=== PATIENT | female | born 1980 | race Caucasian/White ===

== ENCOUNTER 2021-05-29 02:21 | Inpatient (IN) | payer SELFPAY ==
[~2021-05-29] VITALS: Ht 175.3 cm; Wt 75.0 kg
[2021-05-29] MEDS ORDERED: OXYTOCIN 30 UNIT/500 ML PREMIX 500 ML IV PRN ×3 (02:45→04:45)
[2021-05-29] MEDS ORDERED: BUTORPHANOL 2 MG/ML VIAL. IVP PRN ×2 (02:45)
[2021-05-29] MEDS ORDERED: IV RINGERS,LACTATED 1000ML 1,000 ML IV SCH (02:45)
[2021-05-29] MEDS ORDERED: TERBUTALINE 1 MG/ML VIAL. SQ PRN (02:45)
[2021-05-29] MEDS ORDERED: 0.9 % SODIUM CHLORIDE 10 ML DISP.SYRIN. IV PRN ×2 (02:45→04:45)
[2021-05-29] MEDS ORDERED: LIDOCAINE 1% PF 30 ML VIAL. INJ PRN (02:45)
[2021-05-29] MEDS ORDERED: ACETAMINOPHEN 325 MG TABLET. PO PRN ×2 (02:45→04:45)
[2021-05-29 02:58] LABS: BILIRUBIN,URINE NEGATIVE (NEG); CLARITY,URINE CLEAR; COLOR,URINE AMBER; NITRITE,URINE NEGATIVE (NEG); PROTEIN,URINE 100 mg/dL (NEG-TRACE)
[2021-05-29 03:04] LABS: BARBITURATES NEG (NEG); BENZODIAZEPINES NEG (NEG); CANNABINOIDS NEG (NEG); COCAINE NEG (NEG); METHADONE NEG (NEG); OPIATES NEG (NEG); PHENCYCLIDINE NEG (NEG)
[2021-05-29 03:06] LABS: AMPHETAMINE/METHAMPHETAMINE POS (NEG)
[2021-05-29 03:13] LABS: BASO % 0 % (0-3); EOS % 0 % (0-3); HEMATOCRIT 31.4 % (36.0-47.0); HEMOGLOBIN 10.5 g/dL (12.0-15.5); LYMPH # 1.4 x10^3/uL (1.0-4.8); LYMPH % 11 % (24-48); MEAN CORPUSCULAR HEMOGLOBIN 28 pg (25-35); MEAN CORPUSCULAR HGB CONC 34 g/dL (31-37); MEAN CORPUSCULAR VOLUME 82 fL (79-100); MONO % 8 % (0-9); NEUT # 10.6 x10^3/uL (1.8-7.7); NEUT % 81 % (31-73); PLATELET COUNT 218 x10^3/uL (140-400); RED BLOOD COUNT 3.84 x10^6/uL (3.50-5.40); WHITE BLOOD COUNT 13.1 x10^3/uL (4.0-11.0)
[2021-05-29 03:13] LABS: BACTERIA,URINE MANY /HPF (0-FEW)
[2021-05-29 03:14] VITALS: BP 134/74
--- NOTE | 2021-05-29 04:33 | PDOC1 ---
[facility] H&P Date of Admission: Date of Admission: May 29, 2021 at 02:21 History of Present Illness: EDC: unknown LMP: Aug 2020 40y @ ~35wks by 35wk u/s presents with ctxs. On presentation the pt was found to be 8 cm dilated. The pt has not established care during this . She went to [facility] for back last wk. During her 2 day stay she had an u/s performed. She states that they told her that the pregn argenis was 35wks. That is her first and only u/s. The pt does not have a specific reason why she never established care. PMH: Depression/Anxiety, Schizophrenia PSH: Denies Meds: None All: Abilify, Lamotrigine OBHx: 4 x TSVD SH: no tob, no EtOH FH: noncontributory Medications: Meds: Current Medications Medications (Trade) Dose Ordered Sig/Flip Route PRN Reason Start Time Stop Time Status Last Admin Dose Admin Ringer's Solution 1,000 ml @ 125 mls/hr Q8H IV 05/29/21 02:45 05/29/21 04:32 DC 05/29/21 02:45 Allergies: Coded Allergies: aripiprazole (Unverified Allergy, Unknown, 05/29/21) lamotrigine (Unverified Allergy, Unknown, 05/29/21) Physical Exam: Vital Signs: Vital Signs Date Time Temp Pulse Resp B/P (MAP) Pulse Ox O2 Delivery O2 Flow Rate FiO2 05/29/21 03:14 98.2 84 20 134/74 (94) Room Air 98.2 PE: GENERAL: No apparent distress. Alert and oriented. HEENT: Head normocephalic, atraumatic. NECK: Supple LUNGS: Clear to auscultation. HEART: RRR, S1, S2 present, pulses intact ABDOMEN: Soft, positive bowel sounds. EXTREMITIES: No cyanosis or edema. NEUROLOGIC: Normal speech, normal tone PSYCHIATRIC: Normal affect, normal mood. SKIN: No ulceration. FHT: 120s +acels/no decels/mLTV [place]: 1-4 min SVE: 8/90/0 Labs: Laboratory Tests Test 05/29/21 02:31 05/29/21 02:45 9/3/21 03:16 Urine Collection Type Unknown Urine Color Rachael Urine Clarity Clear Urine pH 6.0 (<5.0-8.0) Urine Specific [place] >=1.030 (1.000-1.030) Urine Protein 100 mg/dL (NEG-TRACE) Urine Glucose (UA) Negative mg/dL (NEG) Urine Ketones (Stick) 15 mg/dL (NEG) Urine Blood Trace (NEG) Urine Nitrite Negative (NEG) Urine Bilirubin Negative (NEG) Urine Urobilinogen Dipstick 1.0 mg/dL (0.2 mg/dL) Urine Leukocyte Esterase Small (NEG) Urine RBC 1-2 /HPF (0-2) Urine WBC 11-20 /HPF (0-4) Urine Squamous Epithelial Cells Mod /LPF Urine Bacteria Many /HPF (0-FEW) Urine Mucus Mod /LPF Urine Opiates Screen Neg (NEG) Urine Methadone Screen Neg (NEG) Urine Barbiturates Neg (NEG) Urine Phencyclidine Screen Neg (NEG) Urine Amphetamine/Methamphetamine Pos (NEG) Urine Benzodiazepines Screen Neg (NEG) Urine Cocaine Screen Neg (NEG) Urine Cannabinoids Screen Neg (NEG) Urine Ethyl Alcohol Neg (NEG) White Blood Count 13.1 x10^3/uL (4.0-11.0) H Red Blood Count 3.84 x10^6/uL (3.50-5.40) Hemoglobin 10.5 g/dL (12.0-15.5) L Hematocrit 31.4 % (36.0-47.0) L Mean Corpuscular Volume 82 fL (79-100) Mean Corpuscular Hemoglobin 28 pg (25-35) Mean Corpuscular Hemoglobin Concent 34 g/dL (31-37) Red Cell Distribution Width 17.0 % (11.5-14.5) H Platelet Count 218 x10^3/uL (140-400) Neutrophils (%) (Auto) 81 % (31-73) H Lymphocytes (%) (Auto) 11 % (24-48) L Monocytes (%) (Auto) 8 % (0-9) Eosinophils (%) (Auto) 0 % (0-3) Basophils (%) (Auto) 0 % (0-3) Neutrophils # (Auto) 10.6 x10^3/uL (1.8-7.7) H Lymphocytes # (Auto) 1.4 x10^3/uL (1.0-4.8) Monocytes # (Auto) 1.0 x10^3/uL (0.0-1.1) Eosinophils # (Auto) 0.0 x10^3/uL (0.0-0.7) Basophils # (Auto) 0.0 x10^3/uL (0.0-0.2) SARS-CoV-2 Antigen (Rapid) Negative (NEGATIVE) Laboratory Tests 05/29/21 02:45 Laboratory Tests 05/29/21 02:45 Assessment & Plan: A/P 40y @ ~35wks by 35wk 1.) Active labor 2.) No care 3.) AMA 4.) Anemia 5.) UDS pos - Meth 6.) Fetus cat I FHT, mec 7.) GBS unk 8.) Plans to give the baby to adoption 9.) H/o Depression/Anxiety has not required meds for the last 10yrs ALLISON LARIOS MD May 29, 2021 04:33
--- NOTE | 2021-05-29 04:34 | PDOC4 ---
VAGINAL DELIVERY DATE DATE: 05/29/21 TIME: 04:33 TIME Patient delivered a viable female over intact perineum at 0420. Wt 6 lb 8 oz. Apgars 9/9. Placenta delivered spontaneously, intact with 3VC. No lacerations noted. Good hemostasis noted. 20 U of Pit given with IVF. EBL 100 cc. WEIGHT Weight [ ] ALLISON LARIOS MD May 29, 2021 04:34
[2021-05-29] MEDS ORDERED: diphenhydrAMINE HCL 25 MG CAPSULE PO PRN (04:45)
[2021-05-29] MEDS ORDERED: SIMETHICONE 80 MG TAB.CHEW PO PRN (04:45)
[2021-05-29] MEDS ORDERED: MMR per PROTOCOL. MC PRN (04:45)
[2021-05-29] MEDS ORDERED: BENZOCAINE 20% TOPICAL AEROSOL SPRAY 57GM CAN. TP PRN (04:45)
[2021-05-29] MEDS ORDERED: TDaP (Adacel) per PROTOCOL. MC PRN (04:45)
[2021-05-29] MEDS ORDERED: oxyCODONE/APAP 5/325 1 TAB TABLET PO PRN (04:45)
[2021-05-29] MEDS ORDERED: ZOLPIDEM 5 MG TABLET. PO PRN (04:45)
[2021-05-29] MEDS ORDERED: HYDROCORTISONE 1% TOPICAL OINTMENT 30GM TUBE. TP PRN (04:45)
[2021-05-29] MEDS ORDERED: MAGNESIUM HYDROXIDE 2,400 MG/30 ML ORAL.SUSP. PO PRN (04:45)
[2021-05-29] MEDS ORDERED: PHENYLEPH/MINERAL OIL/PETROLAT RECTAL OINTMENT TUBE. RC PRN (04:45)
[2021-05-29] MEDS ORDERED: MAG HYDROX/ALUMINUM HYD/SIMETH 30 ML ORAL.SUSP PO PRN (04:45)
[2021-05-29] MEDS: IBUPROFEN 400 MG TABLET. PO PRN ×2 (05:07→16:13)
[2021-05-29] MEDS: DOCUSATE SODIUM 100 MG CAPSULE. PO PRN ×2 (09:36→16:12)
[2021-05-29] MEDS: PRENATAL MULTIVITAMIN TABLET. PO SCH (09:36)
[2021-05-29 11:20] VITALS: BP 115/58
--- NOTE | 2021-05-29 11:28 | NUR ---
SS following up with referral regarding Methamphetamine positive and mother requesting baby be placed for adoption. SS discussed with RN and reviewed chart. Mother and UDS positive for Methamphetamine. DCF hotline report made for substance use and mother wanting to place for adoption. Intake#[id number]. [facility] notified as well and are coming to the hospital to meet with mother to discuss adoption. PAT team referral made. Macarena James from PAT team met with mother and mother declined resources for substance abuse treatment. Mother notified PAT team the she wants baby to be adopted. RN notified of referrals. SS will continue to follow.
[2021-05-29 16:15] VITALS: BP 113/70
[2021-05-30 02:21] VITALS: BP 94/51
[2021-05-30 06:02] VITALS: BP 99/63
[2021-05-30 08:27] LABS: HEMATOCRIT 27.5 % (36.0-47.0); HEMOGLOBIN 9.1 g/dL (12.0-15.5); RED BLOOD COUNT 3.29 x10^6/uL (3.50-5.40); RED CELL DISTRIBUTION WIDTH 17.1 % (11.5-14.5); WHITE BLOOD COUNT 7.9 x10^3/uL (4.0-11.0)
[2021-05-30 08:55] VITALS: BP 108/58
[2021-05-30] MEDS: FERROUS SULFATE 325 MG TABLET. PO SCH (09:00)
[2021-05-30] MEDS: PRENATAL MULTIVITAMIN TABLET. PO SCH (09:00)
[2021-05-30] MEDS: DOCUSATE SODIUM 100 MG CAPSULE. PO PRN (09:00)
--- NOTE | 2021-05-30 09:42 | PDOC ---
BAGGAGE CHECKER PROGRESS NOTE Date of Service: DATE: 05/30/21 TIME: 09:41 Subjective: Pt with good pain control. Bethanie PO. Voiding. Minimal lochia. Objective: Vital Signs: Vital Signs Date Time Temp Pulse Resp B/P (MAP) Pulse Ox O2 Delivery O2 Flow Rate FiO2 05/29/21 11:20 97.5 73 20 115/58 (77) 98 97.5 Vital Signs Date Time Temp Pulse Resp B/P (MAP) Pulse Ox O2 Delivery O2 Flow Rate FiO2 05/30/21 08:55 98.3 71 0 108/58 (75) 98.3 05/29/21 11:20 98 Labs: Laboratory Tests Test 05/30/21 07:25 White Blood Count 7.9 x10^3/uL (4.0-11.0) Red Blood Count 3.29 x10^6/uL (3.50-5.40) L Hemoglobin 9.1 g/dL (12.0-15.5) L Hematocrit 27.5 % (36.0-47.0) L Mean Corpuscular Volume 83 fL (79-100) Mean Corpuscular Hemoglobin 28 pg (25-35) Mean Corpuscular Hemoglobin Concent 33 g/dL (31-37) Red Cell Distribution Width 17.1 % (11.5-14.5) H Platelet Count 204 x10^3/uL (140-400) Laboratory Tests 05/30/21 07:25 Laboratory Tests 05/30/21 07:25 Physical Exam: GENERAL: No apparent distress. Alert and oriented. HEENT: Head normocephalic, atraumatic. NECK: Supple LUNGS: Clear to auscultation. HEART: RRR, S1, S2 present, pulses intact ABDOMEN: Soft, positive bowel sounds. EXTREMITIES: No cyanosis or edema. NEUROLOGIC: Normal speech, normal tone PSYCHIATRIC: Normal affect, normal mood. SKIN: No ulceration. FFNT below umb No C/C/E Assessment & Plan: A/P 40y PPD #1 s/p 1.) PP doing well 2.) No care 3.) AMA 4.) Anemia Hgb 10.5 -> 9.1 5.) UCx E. Coli (50,000 CFU/ML), Rx: Macrobid 6.) UDS pos - Meth 7.) Plans to give the baby to adoption 8.) H/o Depression/Anxiety has not required meds for the last 10yrs 9.) Cont PP care ALLISON LARIOS MD May 30, 2021 09:42
--- NOTE | 2021-05-30 13:23 | NUR ---
PAT human resources team member here talking with patient.
[2021-05-30] MEDS ORDERED: FERR325T14 PO (15:56)
[2021-05-30] MEDS ORDERED: DOCU-109 PO (15:56)
[2021-05-30] MEDS ORDERED: IBUP-1060 PO (15:56)
[2021-05-30 21:15] VITALS: BP 110/53
--- NOTE | 2021-05-31 04:26 | NUR ---
refused vitals at this time
[2021-05-31] MEDS: NITROFURANTOIN MONOHYD/M-CRYST 100 MG CAPSULE. PO SCH ×2 (05:56→12:49)
[2021-05-31 08:01] VITALS: BP 118/68
[2021-05-31] MEDS: FERROUS SULFATE 325 MG TABLET. PO SCH (09:32)
[2021-05-31] MEDS: IBUPROFEN 400 MG TABLET. PO PRN (09:32)
[2021-05-31] MEDS: DOCUSATE SODIUM 100 MG CAPSULE. PO PRN (09:32)
[2021-05-31] MEDS: PRENATAL MULTIVITAMIN TABLET. PO SCH (09:32)
[2021-05-31] MEDS ORDERED: NITR100C62 PO (11:20)
--- NOTE | 2021-05-31 11:23 | PDOC ---
SUPERVISOR DECORATING PROGRESS NOTE Date of Service: DATE: 05/31/21 TIME: 11:23 Subjective: Pt with good pain control. Bethanie PO. Voiding. Minimal lochia Objective: Vital Signs: Vital Signs Date Time Temp Pulse Resp B/P (MAP) Pulse Ox O2 Delivery O2 Flow Rate FiO2 05/30/21 08:55 98.3 71 0 108/58 (75) 98.3 05/30/21 21:15 Room Air Vital Signs Date Time Temp Pulse Resp B/P (MAP) Pulse Ox O2 Delivery O2 Flow Rate FiO2 05/31/21 08:01 98.6 18 18 118/68 (85) 98.6 05/30/21 21:15 Room Air Physical Exam: GENERAL: No apparent distress. Alert and oriented. HEENT: Head normocephalic, atraumatic. NECK: Supple LUNGS: Clear to auscultation. HEART: RRR, S1, S2 present, pulses intact ABDOMEN: Soft, positive bowel sounds. EXTREMITIES: No cyanosis or edema. NEUROLOGIC: Normal speech, normal tone PSYCHIATRIC: Normal affect, normal mood. SKIN: No ulceration. FFNT below umb No C/C/E Assessment & Plan: A/P 40y PPD #2 s/p 1.) PP doing well 2.) No care 3.) AMA 4.) Anemia Hgb 10.5 -> 9.1 5.) UCx E. Coli (50,000 CFU/ML), on Macrobid 6.) UDS pos - Meth 7.) Plans to give the baby to adoption 8.) H/o Depression/Anxiety has not required meds for the last 10yrs 9.) D/c home ALLISON LARIOS MD May 31, 2021 11:23
[2021-05-31 13:10] VITALS: BP 117/74
--- NOTE | 2021-05-31 13:59 | DS ---
DATE OF DISCHARGE: 05/31/2021 ADMISSION DIAGNOSES: 1. Intrauterine at roughly 35 weeks. 2. Active labor. 3. No care. 4. Advanced maternal age. 5. Anemia. 6. Urine drug screen positive for methamphetamine. 7. GBS unknown. 8. Patient with plans to give the baby to adoption. 9. History of depression and anxiety. DISCHARGE DIAGNOSES: 1. Intrauterine at roughly 35 weeks. 2. Active labor. 3. No care. 4. Advanced maternal age. 5. Anemia. 6. Urine drug screen positive for methamphetamine. 7. GBS unknown. 8. Patient with plans to give the baby to adoption. 9. History of depression and anxiety. PROCEDURE: Spontaneous vaginal delivery. BRIEF HOSPITAL COURSE: The patient is a 40-year-old 5, para 4-0-0-4, who presented to Labor And Delivery at roughly 35 weeks with contractions. On presentation, the patient was found to be 8 cm dilated. During the , the patient did not establish any care. The patient only had one ultrasound which occurred last week at [facility]. She presented to the hospital for back pain. During that hospital course, she had an ultrasound revealing her to have a fetus measuring roughly 35 weeks per the patient. The patient ultimately progressed and delivered by vaginal delivery. See delivery note for full detail. By day #2 the patient was meeting all discharge criteria and subsequently discharged home. Of note, the patient's hemoglobin on admission was 10.5 and after delivery, was found to be 9.1. Her UA was equivocal, so was sent down for urine culture, which ultimately revealed E. coli. The patient was subsequently started on Macrobid. DISCHARGE INSTRUCTIONS: The patient was told not to lift anything greater than 20 pounds, have pelvic rest for 6 weeks. CALL IF: The patient was to call if she had fevers, chills, nausea, vomiting, abdominal pain, or any additional questions or concerns. FOLLOWUP APPOINTMENT: The patient was to call my office for an appointment for her 6-week appointment. DISCHARGE MEDICATIONS: The patient was given a prescription for Motrin 800 mg, 30 pills; Colace 100 mg, 30 pills; ferrous sulfate 325 mg, 30 pills and Macrobid 100 mg, 14 pills. NICOLE/GRAY DR: [place] TID: [id number]
--- NOTE | 2021-05-31 14:10 | NUR ---
Pt escorted to [facility] accompanied by RN and [employer] hr representative "Deyanira" in stable post condition with MVSS. Pt was receptive to all post home/self care as she adopted out/relinquished her .. Copy of discharge instructions given to pt post thorough review with pt. Pt was transported per hospital provided Cab pass to her apartment in [facility].
--- NOTE | 2021-06-03 17:07 | PATHOLOGY ---
[facility] Accession Number: [id number] . 01 Material submitted: . placenta - PLACENTA AND CORD . 02 Diagnosis: 501 gram placenta of unknown gestational age with attached membranes and umbilical cord: - Meconium staining of placental membranes. - Increased subchorionic fibrin deposition of peripheral placenta, focal. - Chorangiosis, focal. (JPM:alyson; 06/03/2021) QMS 06/03/2021 1012 Local . 02 Comment: There is no evidence of an acute chorioamnionitis or villitis. There are no infarcts. (JPM:alyson; 06/03/2021) . 02 Electronically signed: . Alfred Martin MD, Pathologist NPI- [id number] . 01 Gross description: . Fixative: Formalin Labeled: Per the requisition, "placenta and cord". Specimen received: An intact joe placenta to include disc, membranes, and umbilical cord Dimensions: 17.0 x 15.5 x 3.5 cm membranes appearance: Aleman-green and semitranslucent membrane rupture: 14.0 cm from placental disc membrane insertion: Marginal Umbilical cord: 17.5 cm in length, 0.9-1.5 cm in diameter Umbilical cord insertion: Eccentric, 6.5 cm from the closest placental margin Number of umbilical vessels: 3 Umbilical cord appearance: Aleman-white and gelatinous with 4 spirals per 10 cm Trimmed placental weight: 501 g surface: Aleman-green with meconium staining. The disc appears well vascularized. Maternal surface: Red-brown with intact cotyledons which appear entirely present. A moderate amount of red-brown blood clot is loosely adherent to the maternal surface. Abnormalities: A 3.0 x 1.7 x 0.5 cm aleman-yellow indurated area is identified at the periphery of the disc, underlying the surface. The induration comprises approximately 3% of the disc. . . Curb Setter Helper sections are submitted as follows: A1 umbilical cord and membranes, rolled A2 union contract representative peripheral placenta, full-thickness section A3 union contract representative central placenta, full-thickness section, bisected A4 indurated area A5 maternal surface with attached blood clot (MRF; 05/29/2021) MFE/MFE 05/29/2021 1718 Local . 02 Pathologist provided ICD-10: O43.893, O77.0, Z37.0, Z3A.00 . 02 CPT . 277508 Specimen Comment: A courtesy copy of this report has been sent to [phone] Specimen Comment: Report sent to Specimen Comment: A duplicate report has been generated due to demographic updates. Performed at: 01 [facility] [address] [id number] MD Bradford Huang MD Phone: [phone] Performed at: 02 [facility] [address] [place], [place] [id number] MD Alfred Martin MD Phone: [phone]
== END 2021-05-31 14:40 | disposition home or self-care (01) | DRG 806 ==
LOC: 3 SO LND 02:21 → OBSVTOIN 02:21
PROVIDERS: ADMIT Obstetrics & Gynecology; ATTEND Obstetrics & Gynecology
PROC: 10E0XZZ Delivery of Products of Conception, External Approach (ICD-10-PCS; principal; 2021-05-29)
DX: O99.02 Anemia complicating childbirth (principal); O99.324 Drug use complicating childbirth; Z37.0 Single live birth; O99.344 Other mental disorders complicating childbirth; D64.9 Anemia, unspecified; F20.9 Schizophrenia, unspecified; F41.9 Anxiety disorder, unspecified; Z20.822 Contact with and (suspected) exposure to COVID-19; F15.90 Other stimulant use, unspecified, uncomplicated; B96.20 Unspecified Escherichia coli [E. coli] as the cause of diseases classified elsewhere; Z3A.35 35 weeks gestation of pregnancy; Z88.8 Allergy status to other drugs, medicaments and biological substances
CPT/HCPCS: 36415; 80307; 81001; 85025; 85027; 86592; 86703; 86762; 86850; 86900; 86901; 87077; 87086; 87186; 87340; 87426; 88307; J2590; J7120; U0003; U0005; G0378